=== PATIENT | female | born 1995 | race Caucasian/White ===

== ENCOUNTER → 2016-03-27 | Outpatient (REF) | payer OTHER, MEDICAID | LOC: M SFHCLERA 13:06 | PROVIDERS: ATTEND Nurse Practitioner Family | DX: R30.0 Dysuria (principal) ==

== ENCOUNTER → 2016-04-01 | Outpatient (REF) | payer OTHER, MEDICAID | LOC: M SFHCLERA 10:11 | PROVIDERS: ATTEND Nurse Practitioner Family | DX: R30.0 Dysuria (principal) ==

== ENCOUNTER → 2022-04-26 | Outpatient (CLI) | payer OTHER ==
[~2022-04-26] MED LIST: GASTROGRAFIN SOLUTION 30ML As Ordered ONE; ISOVUE-370 76% 100ML VIAL As Ordered ONE
== END ==
LOC: M RAD 13:03
PROVIDERS: ATTEND Physician Assistant
DX: R10.9 Unspecified abdominal pain (principal)